=== PATIENT | female | born 1990 | race Caucasian/White ===

== ENCOUNTER 2021-07-17 09:46 | Outpatient (REF) | payer MEDICAID, SELFPAY ==
--- NOTE | 2021-07-17 08:30 | PAPFT_PTH ---
PATIENT: Blanco Francois LOC: [facility]#:[id number] AGE/SX: 31/F ROOM: RE07/17/[address]: Ashley Greer : 1990 BED: DIS: 07/17/2021 SPEC #: [id number] RECD: 07/18/21 12:59 STATUS: BRIAN REYobany #: [id number] STEPHANE: 07/17/21 08:[address]: Ashley Norton DEPT: [facility] Cytology RECD BY: Brandee Pradhan Tissues: 1 - CX/ENDOCX FOR PAP SMEARS Procedures: PAP THIN PREP/UVM Screening HPV DNA PROBE Comments: [id number] (CHLAMYDIA/GC)
[2021-07-17 21:11] LABS: HCT 41.1 % (36.0-46.0); HGB 13.2 g/dL (11.2-15.7); MCH 29.7 pg (27.0-33.0); MCHC 32.1 % (32.0-36.0); MCV 92.4 fL (80-95); MPV 10.9 fL (8.0-11.0); Platelet Count 278 10^3/uL (130-400); RBC 4.45 10^6/uL (3.93-5.22); RDW 12.8 % (11.7-14.6); RDW-SD 43.6 fL; WBC 5.23 10^3/uL (4.4-10.8)
[2021-07-17 21:30] LABS: ALT 39 U/L (14-59); AST 21 U/L (15-37); Albumin 3.9 g/dL (3.4-5.0); Alkaline Phosphatase 66 U/L (46-116); Anion Gap 9.3 mmol/L (3-11); BUN 9 mg/dL (7-18); Bilirubin, Total 0.5 mg/dL (0.2-1.0); CO2 26.7 mmol/L (21.0-32.0); CREATININE 0.8 mg/dL (0.55-1.02); Calcium 8.8 mg/dL (8.5-10.1); Calculated LDL 106 mg/dL (<100); Chloride 105 mmol/L (98-107); Cholesterol 161 mg/dL (<200); Glucose 95 mg/dL (74-106); HDL Cholesterol 39 mg/dL (40-60); Potassium 4.5 mmol/L (3.5-5.1); Sodium 141 mmol/L (136-145); TSH 1.04 uIU/mL (0.36-3.74); Total Protein 7.5 g/dL (6.4-8.2); Triglyceride 82 mg/dL (<150)
[2021-07-17 22:06] LABS: Hemoglobin A1C 5.5 % (<5.7)
[2021-07-21 15:10] LABS: Chlamydia Result Negative (Negative); GC Result Negative (Negative)
== END 2021-07-17 09:47 | disposition home or self-care (01) ==
LOC: NCHCN 09:46
PROVIDERS: PCP Nurse Practitioner Family; Visit Provider Nurse Practitioner Family
DX: E66.9 Obesity, unspecified (principal); R73.03 Prediabetes; N93.0 Postcoital and contact bleeding; Z13.220 Encounter for screening for lipoid disorders; Z00.00 Encounter for general adult medical examination without abnormal findings; Z12.4 Encounter for screening for malignant neoplasm of cervix; Z11.3 Encounter for screening for infections with a predominantly sexual mode of transmission; Z01.419 Encounter for gynecological examination (general) (routine) without abnormal findings; Z11.51 Encounter for screening for human papillomavirus (HPV)
CPT/HCPCS: 80053; 80061; 85027; 87491; 87591; 88142; 83036; 84443; 87624

== ENCOUNTER 2024-08-24 08:47 | Outpatient (REF) | payer MEDICAID, SELFPAY ==
--- OUTSIDE RECORDS SUMMARY | 2024-08-24 08:49 | XMS_ITS | Encounter Summary ---
Author Organization [facility] Address [address] [place] [address] Care Team Providers Care Sales Force Developer Name Role Phone Shahab Silverio MD Primary Care Provider [phone] Encounter Details Date Type Department Care Team (Late st Contact Info) Description 04/14/2018 Results Only [facility] [phone] Ashley Walter, DRYER OPERATOR [address] [place], [place] [address] Social History Tobacco Use Types Packs/Day Years Used Date Smoking Tobacco: Never Assessed Sex and Gender Information Value Date Recorded Sex Assigned at Not on file Gender Identity Female 09/10/2023 15:25 EST Sexual Orientation Not on file documented as of this encounter Plan of Treatment Not on file documented as of this encounter Procedures Procedure Name Priority Date/Time Associated Diagnosis Comments PAP TEST- RESULT ONLY Routine 04/14/2018 0:00 EDT documented in this encounter Results * PAP TEST- RESULT ONLY (04/14/2018 0:00 EDT) Pathology Report: CYTOPATHOLOGY REPORT Reports generated via electronic interface contain original data; however they are lacking the format of the original report. Caution should be taken when reading/interpreti ng unformatted reports. Name: ? MICHAEL ALLAN ? Accession #: ? [id number] : ? 1990 (Age: 27) ??F ? N #: ? [id number] ?Collect Date: ? 04/14/2018 Location: ? [facility] ? Receive Date: ? 04/18/2018 Provider: ?ASHLEY WALTER DRYER OPERATOR Copy to: ? Specimen/Source: ?Pap Test, Cervix/Endocervix, ThinPrep Imaging System with manual evaluation Last Menstrual Period: ? 03/27/2018 Other: ? Additional clinical information: Z12.4 ? SPECIMEN ADEQUACY ? Satisfactory for Evaluation - transformation zone component present GENERAL CATEGORIZATION ? Negative for Intraepithelial Lesion or Malignancy ? Document reviewed and electronically signed by: ? DARIEN Cesar(ASCP) ? Report Date: ??04/25/2018 12:44 End of Report [facility] 04/14/2018 04/18/2018 Ashley Walter NP PATHOLOGY ORDERABLES [facility] [address] [place] [address] documented in this encounter Visit Diagnoses Not on filedocumented in this encounter Care Teams Sales Force Developer Relationship Specialty Start Date End Date Shahab Silverio MD PCP - General 09/01/15 12/04/20 documented as of this encounter
--- OUTSIDE RECORDS SUMMARY | 2024-08-24 08:49 | XMS_ITS | Encounter Summary ---
Author Organization [facility] Address [address] [place] [address] Care Team Providers Care Energy Control Officer Name Role Phone [facility] Primary Care Provid er Encounter Details Date Type Department Care Team (Late st Contact Info) Description 07/18/2021 Lab Requisition [facility] Pathology & Laboratory Medicine - [address] [address] Ashley Norton, SALES REPRESENTATIVE [employer] [address] [place], [place] [address] Encounter for general adult medical examination without abnormal findings; Encounter for screening for malignant neoplasm of cervix Social History Tobacco Use Types Packs/Day Years Used Date Smoking Tobacco: Never Assessed Interpersonal Safety Answer Date Record ed Physically Hurt Never 05/26/2020 Verbally Threaten Not on file 05/26/2020 Sex and Gender Information Value Date Recorded Sex Assigned at Not on file Gender Identity Female 09/10/2023 15:25 EST Sexual Orientation Not on file documented as of this encounter Plan of Treatment Not on file documented as of this encounter Procedures Procedure Name Priority Date/Time Associated Diagnosis Comments PAP TEST Today 07/17/2021 8:30 EDT Encounter for general adult medical examination without abnormal findings Encounter for screening for malignant neoplasm of cervix CHLAMYDIA/N. GONORRHOEAE AMPLIFIED NUCLEIC ACID, THINPREP Today 07/17/2021 8:30 EDT HPV DNA DETECTION WITH GENOTYPING, PCR Today 07/17/2021 8:30 EDT Encounter for general adult medical examination without abnormal findings Encounter for screening for malignant neoplasm of cervix documented in this encounter Results * HUMAN PAPILLOMAVIRUS (HPV) DETECTION-HIGH RISK TYPES (07/17/2021 8:30 EDT) HPV other High Risk types, PCR Negative Negative 08/01/2021 15:26 EDT [facility] Comment:No E6 or E7 mRNA is detected from HPV types 16,18,31,33,35,39,45,51,52,56,58,59,66, and 68 by advertising campaign manager mediated amplification. Papanicolaou smear specimen (specimen) CERVIX UTERI STRUCTURE / Unknown 07/17/2021 8:30 EDT 07/31/2021 12:33 EDT Ashley Norton NP MICROBIOLOGY - GENER AL ORDERABLES Performing Organization Address City/State/[facility] Co de Phone Number [facility] [address] [place] [phone] * PAP TEST (07/17/2021 8:30 EDT) Specimens A. Cervix and/or Endocervix , ThinPrep Imaging System with Manual Evaluation 08/01/2021 15:26 [facility] Specimen Adequacy Satisfactory for Evaluation - transformation zone component present 08/01/2021 15:26 [facility] General Categorization Negative for intraepithelial lesion or malignancy 08/01/2021 15:26 [facility] Attestation . 08/01/2021 15:26 [facility] at 1526 Clinical History See below 08/01/20 15:26 [facility] HPV The result for the Human Papillomavirus (HPV) Detection-High Risk Types is Negative. No E6 or E7 mRNA is detected from HPV types 16,18,31,33,35,39 ,45,51,52,56,58,5 9,66, and 68 by advertising campaign manager mediated amplification.Neva ting was performed on specimen [id number] and was resulted on 08/01/2021 1515 EDT by FRANK, LAB INSTRUMENT RESULTS IN 08/01/2021 15:26 EDT [facility] Performing Lab [facility] 08/01/2021 15:26 EDT [facility] Scanned Images 08/01/2021 15:26 EDT [facility] Papanicolaou smear specimen (specimen) CERVIX UTERI STRUCTURE / Unknown 07/17/2021 8:30 EDT 07/22/2021 12:09 EDT Ashley Norton NP PATHOLOGY ORDERABLES Performing Organization Address City/[facility]/ZIP Co de Phone Number [facility] [address] [place] [address] * CHLAMYDIA/N. GONORRHOEAE AMPLIFIED RNA, THINPREP (07/17/2021 8:30 EDT) Neisseria gonorrhoeae Result Negative Negative 07/21/2021 15:05 EDT [facility] Chlamydia trachomatis Result Negative Negative 07/21/2021 15:05 EDT [facility] Papanicolaou smear specimen (specimen) CERVIX UTERI STRUCTURE / Unknown 07/17/2021 8:30 EDT 07/21/2021 8:20 EDT Ashley Norton NP MICROBIOLOGY - GENER AL ORDERABLES Performing Organization Address City/[facility]/ZIP Co de Phone Number [facility] [address] [place] [address] documented in this encounter Visit Diagnoses Diagnosis Encounter for general adult medical examination without abnormal findings Unspecified general medical examination Encounter for screening for malignant neoplasm of cervix Screening for malignant neoplasm of the cervix documented in this encounter Care Teams Energy Control Officer Relationship Specialty Start Date End Date [address] [address] PCP - General 09/10/23 documented as of this encounter
--- OUTSIDE RECORDS SUMMARY | 2024-08-24 08:49 | XMS_ITS | Encounter Summary ---
Author Organization [facility] [place] [address] Care Team Providers Care Leather Stitcher Name Role Phone Shahab Silverio MD Primary Care Provider [phone] Encounter Details Date Type Department Care Team (Latest Contact Info) Description 03/30/2023 Travel Social History Tobacco Use Types Packs/Day Years Used Date Smoking Tobacco: Never Smokeless Tobacco: Never Sex and Gender Information Value Date Recorded Sex Assigned at Not on file Gender Identity Not on file Sexual Orientation Not on file documented as of this encounter Plan of Treatment Not on file documented as of this encounter Visit Diagnoses Not on filedocumented in this encounter Care Teams Leather Stitcher Relationship Specialty Start Date End Date Shahab Silverio MD [address] [place] [phone] PCP - General 09/16/10 documented as of this encounter
--- OUTSIDE RECORDS SUMMARY | 2024-08-24 08:49 | XMS_ITS | Encounter Summary ---
Author Organization [facility] [place] [address] Care Team Providers Care Regulatory Compliance Manager Name Role Phone Shahab Silverio MD Primary Care Provider [phone] Reason for Referral * Consultation (Routine) - Closed Specialty Diagnoses / Procedures Referred By Yoni kruse Referred To Contact Dermatology Diagnoses Neoplasm of uncertain behavior of skin Ashley Norton APRN [address] [place] [address] [facility] Dermatology [address] [place] [address] Referral ID Status Reason Start Date Expiration Date V isits Requested Visits Authorized [id number] Closed Consult, Test & Treat PCP Updated and/or Approved 01/19/2023 01/19/2024 6 6 Encounter Details Date Type Department Care Team (Latest Contact Info) Description 01/19/2023 Transcribe Orders eDH Incoming Referrals [phone] Ashley Norton APRN [address] [place] [address] Neoplasm of uncertain behavior of skin Social History Tobacco Use Types Packs/Day Years Used Date Smoking Tobacco: Never Assessed Sex and Gender Information Value Date Recorded Sex Assigned at Not on file Gender Identity Not on file Sexual Orientation Not on file documented as of this encounter Plan of Treatment Scheduled Referrals Name Type Priority Associated Diagnoses Order Schedule Referral to Dermatology Outpatient Referral Routine Neoplasm of uncertain behavior of skin Ordered: 01/19/2023 documented as of this encounter Visit Diagnoses Diagnosis Neoplasm of uncertain behavior of skin documented in this encounter Care Teams Regulatory Compliance Manager Relationship Specialty Start Date End Date Shahab Silverio MD [address] [place] [phone] PCP - General 09/16/10 documented as of this encounter
--- OUTSIDE RECORDS SUMMARY | 2024-08-24 08:49 | XMS_ITS | Encounter Summary ---
Author Organization [facility] Address [facility] [place] [address] Care Team Providers Care Culinary Assistant Name Role Phone Shahab Silverio MD Primary Care Provider [phone] Reason for Visit * Reason Comments Medication Refill Encounter Details Date Type Department Care Team (Late st Contact Info) Description 11/04/2023 Refill Dermatology at [facility] [address] [place] [address] Amrit Rachel MD [facility] [address] [place] [address] Herpes labialis Social History Tobacco Use Types Packs/Day Years Used Date Smoking Tobacco: Never Smokeless Tobacco: Never Sex and Gender Information Value Date Recorded Sex Assigned at Not on file Gender Identity Not on file Sexual Orientation Not on file documented as of this encounter Miscellaneous Notes * Telephone Encounter - Misty Murphy RN - 11/04/2023 11:13 AM EST Medication Refill Request Order pended and routed to Dr. Rachel to review and sign, if appropriate. - Medication: Valtrex 1 g tabs - Associated diagnosis: Cold sores - Pharmacy: [facility] in [place], [place] - Last visit: 03/30/2023 - Recommended follow up: PRN - Next scheduled: N/A - Special considerations: No - Appropriate to refill?: Yes * Telephone Encounter - Mague Zhou RN - 11/04/2023 11:12 AM EST Medication Refill Request Order(s) pended and routed to Dr. Rachel to review and sign, if appropriate. - Medication(s) requested to refill: Valaclovir - Associated diagnosis: Herpes Labialis - Last visit: 03/30/2023 - Recommended follow up: PRN - Next scheduled: Visit date not found - Appropriate to refill: Pending MD review & approval. documented in this encounter Plan of Treatment Not on file documented as of this encounter Visit Diagnoses Diagnosis Herpes labialis Herpes simplex without mention of complication documented in this encounter Care Teams Culinary Assistant Relationship Specialty Start Date End Date Shahab Silverio MD [address] [place] [phone] PCP - General 09/16/10 documented as of this encounter
--- OUTSIDE RECORDS SUMMARY | 2024-08-24 08:49 | XMS_ITS | Encounter Summary ---
Author Organization [facility] Address [address] [place] [address] Care Team Providers Care Manager Plan Name Role Phone Unavailable Primary Care Provider Unavailabl e Encounter Details Date Type Department Care Team (Late st Contact Info) Description 04/24/2014 Results Only [facility] - [facility] [address] [place], [place] [address] Daksha Walter, STONE BELT SANDER [address] [place], [place] [address] Social History Tobacco Use Types Packs/Day Years [...] Diagnosis Comments PAP TEST- RESULT ONLY Routine 04/24/2014 0:00 EDT documented in this encounter Results * PAP TEST- RESULT ONLY (04/24/2014 0:00 EDT) Pathology Report: CYTOPATHOLOGY REPORT Reports generated via electronic interface contain original data; however they are lacking the format of the original report. Caution should be taken when reading/interpreti ng unformatted reports. Name: ? MICHAEL COOPER ? Accession #: ? [id number] : ? 1990 (Age: 23) ??F ?Collect Date: ? 04/24/2014 Location: ? [facility] ? Receive Date: ? 04/26/2014 Provider: ?DAKSHA WALTER STONE BELT SANDER Copy to: ? Specimen/Source: ?Pap Test, Cervix/Endocervix, ThinPrep Imaging System with manual evaluation Last Menstrual Period: ? 04/18/14 ? SPECIMEN ADEQUACY ? Satisfactory for Evaluation - transformation zone component present GENERAL CATEGORIZATION ? Negative for Intraepithelial Lesion or Malignancy INTERPRETATION ? Fungal organisms present morphologically consistent with Marian species. ? Document reviewed and electronically signed by: ? Hernandez Arnold, DARIEN(ASCP) ? Report Date: ??05/05/2014 08:15 End of Report [facility] 04/24/2014 04/26/2014 Daksha Walter NP PATHOLOGY ORDERABLES [facility] [address] [place] [address] documented in this encounter Visit Diagnoses Not on filedocumented in this encounter
--- OUTSIDE RECORDS SUMMARY | 2024-08-24 08:49 | XMS_ITS | Encounter Summary ---
Author Organization [facility] Address [address] [place] [address] Care Team Providers Care Oceanic Sciences Professor Name Role Phone Unavailable Primary Care Provider Unavailabl e Encounter Details Date Type Department Care Team (Latest Contact Info) Description 05/17/2008 9:22 EDT - 05/17/2008 11:59 EDT Hospital Encounter [facility] [address] [place] [address] Daria Perea FNP [facility] [address] [place] [address] Discharge Disposition: Auto Discharge Social History Tobacco Use Types Packs/Day Years Used Date Smoking Tobacco: Never Assessed Sex and Gender Information Value Date Recorded Sex Assigned at Not on file Gender Identity Female 09/10/2023 15:25 EST Sexual Orientation Not on file documented as of this encounter Discharge Disposition Disposition Code Departure Means Destination Auto Discharge documented in this encounter Plan of Treatment Not on file documented as of this encounter Visit Diagnoses Not on filedocumented in this encounter
--- OUTSIDE RECORDS SUMMARY | 2024-08-24 08:49 | XMS_ITS | Encounter Summary ---
Author Organization [facility] Address [facility] [place] [address] Care Team Providers Care Community Outreach Advocate Name Role Phone Shahab Silverio MD Primary Care Provider [phone] Reason for Visit * Consultation (Routine) - Closed Specialty Diagnoses / Procedures Referred By Yoni covarrubias Referred To Contact Dermatology Diagnoses Neoplasm of uncertain behavior of skin Ashley Norton APRN [address] [place] [address] [facility] Dermatology [address] [place] [address] Referral ID Status Reason Start Date Expiration Date V isits Requested Visits Authorized [id number] Closed Consult, Test & Treat PCP Updated and/or Approved 01/19/2023 01/19/2024 6 6 Encounter Details Date Type Department Care Team (Late st Contact Info) Description 03/30/2023 2:45 PM EDT Office Visit Dermatology at [facility] [address] [place] [phone] Amrit Rachel MD [facility] [address] [place] [address] Fibrous papule of nose; Herpes labialis; Seborrheic keratosis Social History Tobacco Use Types Packs/Day Years Used Date Smoking Tobacco: Never Smokeless Tobacco: Never Tobacco Cessation:Counseling Given: Not Answered Sex and Gender Information Value Date Recorded Sex Assigned at Not on file Gender Identity Not on file Sexual Orientation Not on file documented as of this encounter Progress Notes * Mague Zhou, RN - 03/30/2023 2:45 PM EDT Images from the original note were not included. DEPARTMENT OF DERMATOLOGY Medical Dermatology Clinic Provider: Amrit Rachel MD Patient's preferred name Blanco Preferred contact method for results [x]Phone []myD-H []Letter Detailed phone message OK? Yes Are there any other people with whom we may discuss your care? Celine-Mother Biran- Past Medical History Date, location, treatment Melanoma No Dysplastic nevi No SCC No BCC No AKs No UV Exposure & Protection Sun Protection: SPF 50 Family History Details Melanoma No NMSC Sister-Unknown type of skin cancer Other relevant family history Social History Occupation: youth support worker Hobbies: Other: Pre-Procedure Screening Details Allergy to lidocaine, epinephrine, Dermabond, chlorhexidine, or adhesives No Bleeding disorder or blood thinners no Pacemaker, defibrillator, deep brain stimulator, cochlear implant No History of Present Illness: Blanco Francois is a 32 y.o. Patient is referred to the clinic at [facility] of [facility] Norton for the following: -Bump on the nose. Present for 2-4 years. Tender at times. Previously treated with cryotherapy -Bumps on left dorsal hand. Present for 2-4 years. Asymptomatic. No previous treatment. Review of Systems: General: Feeling well. Skin: No other skin concerns. Medications: Reviewed in eD-H Allergies: Reviewed in eD-H Skin Examination: Focused skin examination of the face and hands was normal with the exception of the findings below. 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 - Discussed benign nature of lesion and provided reassurance. No treatment necessary at this time. #. Seborrheic keratoses Scattered yellow to reese stuck on papules 3-6 mm in size on left dorsal hand -benign nature of lesions discussed -patient reassured. Figure 1 Photo(s) taken and charted with patient's verbal consent. Other: N/A RTC: PRN []Note routed to ward secretary []Recall placed in scheduling system []Appointment scheduled at checkout Scribe attestation: Mague Zhou, RN has performed the documentation for this encounter in the presence of and acting as a scribe for Amrit Rachel MD. I performed the above scribed service and agree with the accuracy of the documentation in this encounter. Reviewed and signed by: Amrit Rachel MD Dermatology [facility] documented in this encounter Plan of Treatment Not on file documented as of this encounter Visit Diagnoses Diagnosis Fibrous papule of nose Benign neoplasm of skin of other and unspecified parts of face Herpes labialis Herpes simplex without mention of complication Seborrheic keratosis Other seborrheic keratosis documented in this encounter Care Teams Community Outreach Advocate Relationship Specialty Start Date End Date Shahab Silverio MD [address] [place] [phone] PCP - General 09/16/10 documented as of this encounter
--- OUTSIDE RECORDS SUMMARY | 2024-08-24 08:49 | XMS_ITS | Encounter Summary ---
Author Organization [facility] Address [address] [place] [address] Care Team Providers Care Photo Booth Operator Name Role Phone Shahab Silverio MD Primary Care Provider [phone] Encounter Details Date Type Department Care Team (Late st Contact Info) Description 08/19/2017 Results Only [facility] [phone] Marsha Ambriz, CHART COMPUTER [address] [place] [address] Social History Tobacco Use Types Packs/Day Years [...] Diagnosis Comments PAP TEST- RESULT ONLY Routine 08/19/2017 0:00 EDT documented in this encounter Results * PAP TEST- RESULT ONLY (08/19/2017 0:00 EDT) Pathology Report: CYTOPATHOLOGY REPORT Reports generated via electronic interface contain original data; however they are lacking the format of the original report. Caution should be taken when reading/interpret ing unformatted reports. Name: ? MICHAEL ALLAN ? Accession #: ? [id number] : ? 1990 (Age: 27) ??F ?Collect Date: ? 08/19/2017 Location: ? [facility] ? Receive Date: ? 08/24/2017 Provider: ?MARSHA PB YEN Copy to: ? Specimen/Source: ?Pap Test, Cervix, ThinPrep Imaging System with manual evaluation Last Menstrual Period: ? 08/12/17 Menstrual/Pregnan cy Status: ? Post Hormonal/Contrace ptive Status: ? None ? SPECIMEN ADEQUACY ? Unsatisfactory for Evaluation, - insufficient numbers of squamous epithelial cells (less than 10% of expected cellularity) - sample preparation compromised by excessive blood GENERAL CATEGORIZATION ? Specimen processed and examined, but unsatisfactory for evaluation of epithelial abnormality. ??Recommend repeat Pap test in 2-4 months as stated in ASCCP's 2012 Updated Consensus Guidelines. EDUCATIONAL NOTES/RECOMMENDAT IONS ? An additional slide was prepared and evaluated. ? Document reviewed and electronically signed by: ? DARIEN Sepulveda(ASCP)(IAC) ? Report Date: ??09/07/2017 14:34 End of Report [facility] 08/19/2017 08/24/2017 Marsha Barlow Pb YEN PATHOLOGY ORDERABLES [facility] [address] [place] [address] documented in this encounter Visit Diagnoses Not on filedocumented in this encounter Care Teams Photo Booth Operator Relationship Specialty Start Date End Date Shahab Silverio MD PCP - General 09/01/15 12/04/20 documented as of this encounter
--- OUTSIDE RECORDS SUMMARY | 2024-08-24 08:49 | XMS_ITS | Encounter Summary ---
Author Organization [facility] Address [address] [place] [address] Care Team Providers Care Pin Inserter Regulator Name Role Phone Unavailable Primary Care Provider Unavailabl e Encounter Details Date Type Department Care Team (Late st Contact Info) Description 05/17/2008 Before PRISM Converted Visit (Maple) [facility] - Maple conversion [address] [place] [address] Daria Perea FNP [facility] [address] [place] [address] Social History Tobacco Use Types Packs/Day Years Used Date Smoking Tobacco: Never Assessed Sex and Gender Information Value Date Recorded Sex Assigned at Not on file Gender Identity Female 09/10/2023 15:25 EST Sexual Orientation Not on file documented as of this encounter Plan of Treatment Not on file documented as of this encounter Visit Diagnoses * Evaluation - Daria Perea - 07/22/2009 1349 EDT DIVISION OF INFECTIOUS DISEASE NEW PATIENT EVALUATION - 05/17/2008 TRAVEL HEALTH SERVICE Where: [facility] When: 07/17/08 How Lon months Purpose: school ALLERGIES nkda MEDICATIONS None PAST MEDICAL HISTORY No chronic illness, no recent hospitalizations, no cardiac or pulmonary disease, no hepatitis LAST MENSTRUAL PERIOD 4 weeks ago - not IMMUNODEFICIENCY None PREVIOUS IMMUNIZATIONS No childhood vaccines, 1st TD was last year, Hepatitis A and Hepatitis B last year as well RISK/BENEFIT REVIEW Yellow Fever and malaria maps reviewed, Ms. Cooper is going to a Yellow [place]ever and malaria area for ashort trip. She will receive Yellow Fever vaccine today. We discussed mefloquine vs. Malarone; Ms. Cooper is not yet sure the length of her trip to the [facility]. She will call here when her plans are complete. She will review the malaria handout and let us know which prophylaxis she would like. She will use DEET to prevent Dengue. We also discussed Hepatitis A, and typhoid vaccines and she will receive these today. She will also receive Tdap and Hepatitis B boosters. I reviewed the schedule for these vaccines with Ms. Cooper and she will schedule an appointment for boosters in 6 months. She will seek Postexposure vaccine for rabies if necessary. We reviewed the high altitude handout. Ms. Cooper decided not to be vaccinated today. She will call back if she would like an appointment with our nurse for vaccines. X Insect/food/water/sex precautions reviewed. X Patient education handouts given PHYSICAL EXAM Temp: 97.4 BP: 100/70 Weight: 71 kg Barriers to learning/understanding: none The patient verbalized understanding and agrees with the plan. Total visit time: 20 minutes. Time spent on counseling by provider: 20 minutes IMMUNIZATIONS NEEDED Cholera: Yes/No Date Given Lot # Site 1 Yellow Fever 2 Typhoid, oral 05/17/08 Oral Typhim 3 MMR 4 Tetanus Diphtheria (Tdap) 5 Meningococcal Vaccine Menomune Menactra 6 Polio (OPV, IPV) 7 Malaria Prophylaxis Chloroquine Malarone Mefloquine Doxycycline Other 8 Immune Globulin WT: 9 Hepatitis A Vaccine Per patient last year Booster 10 Hepatitis B Vaccine Per patient last year Booster x1 month Booster x6 month 11 Influenza 12 Rabies Booster x7 days Booster x28 days 13 J.E.V. Booster x7 days Booster x30 days OTHER ANTIBIOTICS Patient advised to sit for 15 minutes. Signed by CALVIN Yadav 05/21/2008 15:50 CALVIN Yadav D: - CALVIN Yadav - ION Job ID: Doc ID: [id number] cc: Shahab Silverio MD cc: Shahab Silverio MD documented in this encounter
--- OUTSIDE RECORDS SUMMARY | 2024-08-24 08:49 | XMS_ITS | Clinical Summary ---
Author Organization [facility] Address [address] [place] [address] Care Team Providers Care Sintering Press Operator Name Role Phone [facility] Primary Care Provid er Allergies No known active allergies Medications Medication Sig Dispensed Refills Start Date End Date Status valACYclovir (VALTREX) 1 gram tablet 04/05/2023 Active docosahexaenoic acid/epa (FISH OIL ORAL) Take by mouth. Active multivitamin capsule Take 1 Capsule by mouth daily. Active benzonatate (TESSALON) 100 mg capsule Take 1 Capsule by mouth 3 times daily as needed for Cough. 30 Capsule 09/10/2023 Active Social History Tobacco Use Types Packs/Day Years Used Date Smoking Tobacco: Never Assessed Interpersonal Safety Answer Date Record ed Physically Hurt Never 05/26/2020 Verbally Threaten Not on file 05/26/2020 Sex and Gender Information Value Date Recorded Sex Assigned at Not on file Gender Identity Female 09/10/2023 15:25 EST Sexual Orientation Not on file Last Filed Vital Signs Vital Sign Reading Time Taken Comments Blood Pressure 148/76 09/10/2023 1603 EST manual Pulse 102 09/10/2023 1603 EST Temperature 36.9 ??C (98.4 ??F) 09/10/2023 1603 EST Respiratory Rate 18 09/10/2023 1603 EST Oxygen Saturation 98% 09/10/2023 1603 EST Inhaled Oxygen Concentration - - Weight - - Height - - Body Mass Index - - Plan of Treatment Health Maintenance Due Date Last Done Comments Hepatitis C Screen 1989 Hepatitis B Vaccine (1 of 3 - 19+ 3-dose series) 08/31 /2008 COVID-19 Vaccine ( season) 2023 Care Teams Sintering Press Operator Relationship Specialty Start Date End Date [address] [address] PCP - General 09/10/23
--- OUTSIDE RECORDS SUMMARY | 2024-08-24 08:49 | XMS_ITS | Referral Summary ---
Author Organization [facility] Address [address] [place] [address] Care Team Providers Care Document Preparer Microfilming Name Role Phone [facility] Primary Care Provid er Allergies No known [...] Mass Index - - Plan of Treatment Not on file Care Teams Document Preparer Microfilming Relationship Specialty Start Date End Date [address] [address] PCP - General 09/10/23
--- OUTSIDE RECORDS SUMMARY | 2024-08-24 08:49 | XMS_ITS | Clinical Summary ---
Author Organization [facility] [place] [address] Care Team Providers Care Buildings And Grounds Director Name Role Phone Shahab Silverio MD Primary Care Provider [phone] Allergies No known active allergies Medications Medication Sig Dispensed Refills Start Date End Date Status multivitamin Capsule Take 1 capsule by mouth daily. Active FISH OIL-DHA-EPA ORAL Take by mouth. Active valACYclovir (Valtrex) 1 gram tabletIndications:Her pes labialis TAKE 2 TABLETS BY MOUTH AT 1ST ONSET OF COLD SORES 10 tablet 1 11/06/2023 Active Social History Tobacco Use Types Packs/Day Years Used Date Smoking Tobacco: Never Smokeless Tobacco: Never Tobacco Cessation:Counseling Given: Not Answered Sex and Gender Information Value Date Recorded Sex Assigned at Not on file Gender Identity Not on file Sexual Orientation Not on file Plan of Treatment Health Maintenance Due Date Last Done Comments HIV screen 2007 Hepatitis C Screening 2007 Hepatitis B vaccine (0-59 yrs) (1) 2008 Tetanus/Diphtheria/Pertussis Vaccines (1 - Tdap) 06/24 HPV test 2019 PAP Smear 2019 Covid-19 Vaccine ( - 2022-24 season) 2024 Influenza (Flu) vaccine (1 o f 1 - Influenza standard series) 06/25/2024 Care Teams Buildings And Grounds Director Relationship Specialty Start Date End Date Shahab Silverio MD [address] [place] [address] [phone] PCP - General 09/16/10
--- OUTSIDE RECORDS SUMMARY | 2024-08-24 08:49 | XMS_ITS | Encounter Summary ---
Author Organization [facility] Address [address] [place] [address] Care Team Providers Care End Packer Name Role [facility] Care [facility] er Reason for Visit * Reason Comments Cough Nasal Congestion Encounter Details Date Type Department Care Team (Late st Contact Info) Description 09/10/2023 15:45 EST Walk-In [facility] [address] [place] [address] [phone] Greg Caldwell PA-C [address] [facility] [address] [place], [place] [id number] Acute cough (Primary Dx) Social History Tobacco Use Types Packs/Day Years Used Date Smoking Tobacco: Never Assessed Interpersonal Safety Answer Date Record ed Physically Hurt Never 05/26/2020 Verbally Threaten Not on file 05/26/2020 Sex and Gender Information Value Date Recorded Sex Assigned at Not on file Gender Identity Female 09/10/2023 15:25 EST Sexual Orientation Not on file documented as of this encounter Last Filed Vital Signs Vital Sign Reading Time Taken Comments Blood Pressure 148/76 09/10/2023 1603 EST manual Pulse 102 09/10/2023 1603 EST Temperature 36.9 ??C (98.4 ??F) 09/10/2023 1603 EST Respiratory Rate 18 09/10/2023 1603 EST Oxygen Saturation 98% 09/10/2023 1603 EST Inhaled Oxygen Concentration - - Weight - - Height - - Body Mass Index - - documented in this encounter Ordered Prescriptions Prescription Sig Dispensed Refills Start Date End Da te benzonatate (TESSALON) 100 mg capsule Take 1 Capsule by mouth 3 times daily as needed for Cough. 30 Capsule 09/10/2023 albuterol 90 mcg/actuation inhaler Inhale 2 Puffs as directed every 4 hours as needed for up to 7 days for Wheezing. 1 Each 09/10/2023 09/17/2023 documented in this encounter Progress Notes * Zoey Lorenzana MA - 09/10/2023 7995 EST CC/HPI: Patient here with lingering nasal congestion and cough/chest congestion. Patient tested + for COVID 3 weeks ago. Covid Screening: In the last 72 hours, has the patient had: New or unusual cough, shortness of breath, new nasal congestion, sore throat, fever, chills, body aches, or new loss of taste or smell without a reasonable alternative diagnosis*? (If yes, assign to ARC)- Yes In the past 10 days, has the patient had a positive Covid test OR a confirmed close Covid exposure (<6ft for > 15mins in 24hr period)? (if yes, assign to ARC, regardless of vaccination status)-No *may be determined by RN or in discussion with available provider (ROLLED HAM LACER's and CCA's can defer to Charge Nurse to complete triage when appropriate) PCP: [facility] * Greg Caldwell PA-C - 09/10/2023 6869 EST Cc cough 33 yo with cough x 3 weeks after testing positive for covid. Initially was productive now has settled. Notes some mild midsternal chest tightness. No shortness of breath. No leg pain or swelling. Has no lung disease. Non smoker. No estrogen use. No hx of VTE. No recent travel. No recent surgery. Chest tightness just started today and is non radiating. Not worse with position. BP (!) 148/76 (BP Cuff Location: Right arm, BP Patient Position: Sitting, BP Cuff Sizes: Adult, long) Comment: manual Pulse 102 Temp 36.9 ??C (98.4 ??F) (Oral) Resp 18 SpO2 98% General appearance: alert, oriented, appears comfortable. HEENT: conjunctiva pink, sclera white. No icterus. Pupils round, equal, reactive. Neck: supple Cardiac: RRR, no murmurs Pulmonary: mild diffuse bilateral wheezing and rhonchi. LE non tender. No swelling A/p 33 yo with 3 weeks of cough after testing positive for covid. Likely a post viral cough or bronchitis. Pt preferred xray for further evaluation, which is clear by my read (vrad pending). I advised albuterol as needed. Tessalon perles were given. I think pericarditis or PE is very unlikely today. She understands to go to the ER for any worsening symptoms. documented in this encounter Plan of Treatment Not on file documented as of this encounter Procedures Procedure Name Priority Date/Time Associated Diagnosis Comments XR CHEST 2 VIEWS STAT 09/10/2023 16:3 1 EST Acute cough documented in this encounter Results * XR CHEST 2 VIEWS (09/10/2023 16:31 EST) Anatomical Region Laterality Modality Computed Radiogr aphy 09/10/2023 16:2 4 EST Impressions 09/10/2023 17:25 EST No acute cardiopulmonary pathology. THIS DOCUMENT HAS BEEN ELECTRONICALLY SIGNED BY NICHOLE MCGRATH MD FOR ANY QUESTIONS OR CONCERNS REGARDING THIS REPORT PLEASE CALL [facility] AT [phone] Narrative 09/10/2023 17:25 EST PROCEDURE INFORMATION: Exam: XR Chest Exam date and time: 09/10/2023 16:24 Age: 33 years old Clinical indication: Acute cough; Additional info: Cough x 3 weeks TECHNIQUE: Imaging protocol: Radiologic exam of the chest. Views: 2 views. COMPARISON: No relevant prior studies available. FINDINGS: Lungs: No consolidation. Pleural spaces: No pleural effusion. No pneumothorax. Heart/Mediastinum: No cardiomegaly. Bones/joints: Linear density projecting over the right 5th posterior rib suggest a benign bone island. No displaced fracture. Procedure Note Nichole Mcgrath MD - 09/10/2023 PROCEDURE INFORMATION: Exam: XR Chest Exam date and time: 09/10/2023 16:24 Age: 33 years old Clinical indication: Acute cough; Additional info: Cough x 3 weeks TECHNIQUE: Imaging protocol: Radiologic exam of the chest. Views: 2 views. COMPARISON: No relevant prior studies available. FINDINGS: Lungs: No consolidation. Pleural spaces: No pleural effusion. No pneumothorax. Heart/Mediastinum: No cardiomegaly. Bones/joints: Linear density projecting over the right 5th posterior rib suggest a benign bone island. No displaced fracture. IMPRESSION No acute cardiopulmonary pathology. THIS DOCUMENT HAS BEEN ELECTRONICALLY SIGNED BY NICHOLE MCGRATH MD FOR ANY QUESTIONS OR CONCERNS REGARDING THIS REPORT PLEASE CALL [facility] [phone] Greg Caldwell PA-C [facility] ORDERABLES documented in this encounter Visit Diagnoses Diagnosis Acute cough- Primary documented in this encounter Historical Medications * This list may reflect changes made after this encounter. Medication Sig Dispensed Refills Start Date End Date multivitamin capsule Take 1 Capsule by mouth daily. docosahexaenoic acid/epa (FISH OIL ORAL) Take by mouth. valACYclovir (VALTREX) 1 gram tablet 04/05/2023 added in this encounter Care Teams End Packer Relationship Specialty Start Date End Date [address] [address] PCP - General 09/10/23 documented as of this encounter
[2024-08-24 15:52] LABS: ALT 22 U/L (14-59); AST 30 U/L (15-37); Albumin 3.7 g/dL (3.4-5.0); Alkaline Phosphatase 80 U/L (46-116); Anion Gap 9.6 mmol/L (3-11); BUN 13 mg/dL (7-18); Bilirubin, Total 0.47 mg/dL (0.2-1.0); CO2 26.4 mmol/L (21.0-32.0); CREATININE 0.8 mg/dL (0.55-1.02); Calcium 9.3 mg/dL (8.5-10.1); Chloride 107 mmol/L (98-107); Estimated GFR 98.48 (mL/min/1.73m2); Glucose 89 mg/dL (74-106); HDL Cholesterol 40 mg/dL (40-60); Potassium 4.5 mmol/L (3.5-5.1); Sodium 143 mmol/L (136-145); TSH 1.12 uIU/mL (0.36-3.74); Total Protein 7.6 g/dL (6.4-8.2); Triglyceride 118 mg/dL (<150)
[2024-08-24 16:03] LABS: Calculated LDL 92 mg/dL (<100); Cholesterol 155 mg/dL (<200)
[2024-08-24 17:04] LABS: Hemoglobin A1C 5.5 % (<5.7)
[2024-08-24 17:50] LABS: HCT 42.5 % (36.0-46.0); MCH 29.9 pg (27.0-33.0); MCHC 32.9 % (32.0-36.0); MCV 91 fL (80-95); MPV 10.8 fL (8.0-11.0); Platelet Count 306 10^3/uL (130-400); RBC 4.68 10^6/uL (3.93-5.22); RDW-SD 43.7 fL; WBC 5.65 10^3/uL (4.4-10.8)
== END 2024-08-24 08:48 | disposition home or self-care (01) ==
LOC: NCHCN 08:47
PROVIDERS: PCP Nurse Practitioner Family; Visit Provider Nurse Practitioner Family
DX: R00.2 Palpitations (principal); R73.03 Prediabetes; Z13.220 Encounter for screening for lipoid disorders
CPT/HCPCS: 80053; 80061; 85027; 83036; 84443